=== PATIENT | male | born 1960 | race Hispanic/Latino ===

== ENCOUNTER 2022-06-07 12:58 | Emergency (ER) | payer SELFPAY ==
[2022-06-07] VITALS (16 sets, daily range): BP systolic 123–182; BP diastolic 71–102
[~2022-06-07] VITALS: Ht 170.2 cm; Wt 66.0 kg
[2022-06-07 13:22] LABS: HEMATOCRIT 42.6 % (39.0-50.0); HEMOGLOBIN 14.6 g/dl (14.0-18.0); IMMATURE GRANULOCYTES 0.1 % (0.0-5.0); MEAN CELL VOLUME 91.2 fL CALC (80.0-100.0); MEAN CORPUSCULAR HGB 31.3 pG CALC (26.0-32.0); MEAN CORPUSCULAR HGB CONC 34.3 g/dL CAL (32.0-36.0); NEUT# 14.07 thou/uL (1.82-7.42); RED BLOOD COUNT 4.67 mill/uL (4.70-6.10); RED CELL DISTRI WIDTH 13.2 % (11.5-15.5)
[2022-06-07 13:48] LABS: ALBUMIN 4.6 g/dL (3.2-5.0); ALKALINE PHOSPHATASE 136 u/l (38-126); ANION GAP 13 (6-22 (CALC)); BILIRUBIN, TOTAL 0.4 mg/dL (0.0-1.4); BUN 12 mg/dL (8-23); BUN/CREATININE RATIO 15 (12-20 (CALC)); CARBON DIOXIDE 22 mmol/l (22-30); CHLORIDE 106 mmol/l (95-108); CREATININE 0.8 mg/dL (0.7-1.3); GFR FOR AFR.AMER. > 60 ML/MIN (>=60 (CALC)); GFR OTHER RACES > 60 ML/MIN (>=60 (CALC)); LIPASE 42 u/l (23-300); POTASSIUM 3.8 mmol/l (3.5-5.1); SGOT/AST 34 u/l (19-48); SODIUM 137 mmol/l (137-146); TOTAL PROTEIN 7.9 g/dL (6.3-8.2)
[2022-06-07 15:59] LABS: URINE BILIRUBIN - DIPSTICK NEGATIVE (NEGATIVE); URINE BLOOD DIPSTICK TRACE-INTACT (NEGATIVE); URINE COLOR YELLOW; URINE GLUCOSE - DIPSTICK NEGATIVE (NEGATIVE); URINE KETONE NEGATIVE (NEGATIVE); URINE LEUK ESTERASE NEGATIVE (NEGATIVE); URINE PROTEIN - DIPSTICK NEGATIVE (NEG-TRACE); URINE SPECIFIC GRAVITY 1.025; URINE UROBILINOGEN - DIPSTICK 0.2 E.U./dL (0.2)
[2022-06-07 16:10] LABS: URINE NITRITE - DIPSTICK NEGATIVE (Negative)
[2022-06-07] MEDS ORDERED: TAMSULOSIN0.4 MG PO (16:53)
== END 2022-06-07 17:10 | disposition home or self-care (01) | DRG 696 ==
LOC: ED 12:58
PROVIDERS: Family Medicine
DX: R33.9 Retention of urine, unspecified (principal)

== ENCOUNTER 2022-06-18 16:13 | Emergency (ER) | payer SELFPAY ==
[~2022-06-18] VITALS: Ht 170.2 cm; Wt 59.0 kg
[~2022-06-18 16:13] MED LIST: TAMSULOSIN0.4 MG PO
[2022-06-18 16:45] VITALS: BP 184/100
[2022-06-18 17:01] VITALS: BP 125/69
[2022-06-18 17:15] VITALS: BP 114/64
[2022-06-18 17:30] VITALS: BP 112/75
[2022-06-18 17:45] VITALS: BP 111/69
[2022-06-18 18:00] VITALS: BP 111/69; BP 123/69
== END 2022-06-18 19:00 | disposition home or self-care (01) | DRG 726 ==
LOC: ED 16:13
PROC: 0T9B70Z Drainage of Bladder with Drainage Device, Via Natural or Artificial Opening (ICD-10-PCS; principal; 2022-06-18)
DX: N40.1 Benign prostatic hyperplasia with lower urinary tract symptoms (principal); R33.8 Other retention of urine